=== PATIENT | male | born 1970 | race Caucasian/White ===

== ENCOUNTER → 2024-07-12 11:55 | Outpatient (BNVA) | payer OTHER, SELFPAY | PROVIDERS: PCP Nurse Practitioner; Referring Provider Nurse Practitioner; Visit Provider Nurse Practitioner Family | DX: D17.1 Benign lipomatous neoplasm of skin and subcutaneous tissue of trunk (principal); D22.39 Melanocytic nevi of other parts of face; L81.4 Other melanin hyperpigmentation; L82.1 Other seborrheic keratosis; L21.8 Other seborrheic dermatitis | CPT/HCPCS: 99204 ==

== ENCOUNTER → 2024-08-14 12:30 | Outpatient (BNVA) | payer OTHER, SELFPAY | PROVIDERS: PCP Nurse Practitioner; Visit Provider Dermatology | DX: D48.5 Neoplasm of uncertain behavior of skin (principal) | CPT/HCPCS: 11404; 13121 ==